=== PATIENT | male | born 1995 | race Caucasian/White ===

== ENCOUNTER 2019-03-05 14:27 | Observation (INO) | payer OTHER ==
[~2019-03-05] VITALS: Ht 188 cm; Wt 100.8 kg
[2019-03-05] MEDS ORDERED: ACET-908 PO (14:54)
[2019-03-05] MEDS ORDERED: KETOROLAC 30 MG/ML VIAL (J1885) IV ONE (15:45)
[2019-03-05] MEDS ORDERED: ONDANSETRON 4MG/2ML VIAL (J2405) IV ONE (15:45)
[2019-03-05] MEDS ORDERED: NS 1,000 ML IV ONE (15:45)
[2019-03-05 16:04] LABS: HEMATOCRIT 24.8 % (42.0-52.0); HEMOGLOBIN 8.8 g/dl (13.5-17.5); MEAN CORPUSCULAR HEMOGLOBIN 32.7 pg (27.0-33.0); MEAN CORPUSCULAR HGB CONC 35.5 g/dl (32.0-36.5); MEAN CORPUSCULAR VOLUME 92.2 fl (80.0-96.0); PLATELET COUNT, AUTOMATED 149 10^3/uL (150-450); RED BLOOD COUNT 2.69 10^6/uL (4.30-6.10); WHITE BLOOD COUNT 7.9 10^3/uL (4.0-10.0)
[2019-03-05 16:30] LABS: ALBUMIN 3.7 GM/DL (3.2-5.2); ALT/SGPT 35 U/L (12-78); BILIRUBIN,TOTAL 2.4 MG/DL (0.2-1.0); BLOOD UREA NITROGEN 18 MG/DL (7-18); CALCIUM LEVEL 8.6 MG/DL (8.5-10.1); CARBON DIOXIDE LEVEL 27 MEQ/L (21-32); CHLORIDE LEVEL 105 MEQ/L (98-107); GLOMERULAR FILTRATION RATE > 60.0 (>60); GLUCOSE, FASTING 104 MG/DL (70-100); POTASSIUM SERUM 4.2 MEQ/L (3.5-5.1); SODIUM LEVEL 139 MEQ/L (136-145); TOTAL PROTEIN 6.3 GM/DL (6.4-8.2)
[2019-03-05] MEDS ORDERED: ISOVUE-370 76% 100ML VIAL (Q9967) As Ordered ONE (16:31)
[2019-03-05 16:33] LABS: ATYPICAL LYMPH 10 % (0-5); BASOPHILS 1 % (0-1); LYMPHOCYTES 20 % (16-44); MONOCYTES 3 % (0-5); NEUTROPHILS 65 % (28-66)
[2019-03-05 16:36] LABS: ANISOCYTOSIS 1+; MONO SCRN POSITIVE (NEGATIVE); PLATELET ESTIMATE NORMAL (NORMAL); POIKILOCYTOSIS 1+
--- NOTE | 2019-03-05 17:15 | REP ---
CT of the neck with contrast Indication: Left cervical lymphadenopathy, recent strap, question abscess. Comparison: None Technique: Axial CT of the soft tissue neck was performed following the uneventful intravenous administration of 75 ml Isovue 378. Coronal and sagittal soft tissue reformatted images were provided. Findings: There is diffuse left cervical lymphadenopathy. Largest, level IIA lymph nodes measure 23 x 816 mm and 22 x 16 mm. Right-sided lymph nodes are not enlarged by CT size criteria. No rim-enhancing fluid collection is identified within the neck to suggest an abscess. The nasal cavity, nasopharynx, oropharynx, hypopharynx are normal in appearance. The nasal septum is midline. The oral cavity is partially obscured by streak artifact from dental amalgam. The thyroid gland, submandibular glands and parotid glands are unremarkable. The upper airway is patent. The lung apices are clear. The orbital contents are intact. The imaged portion of the brain parenchyma is unremarkable. The paranasal sinuses and mastoid air cells are clear. The right mastoid air cells are under pneumatized. The cervical vessels are within normal limits. No suspicious focal osseous lesion. Impression: Cervical lymphadenopathy. No abscess identified. Electronically Signed by Jone Rey MD 03/05/2019 05:07 P
--- NOTE | 2019-03-05 19:12 | REPVR ---
EXAM: CT Abdomen and Pelvis Without Contrast EXAM DATE/TIME: 03/05/2019 6:21 PM CLINICAL HISTORY: 23 years old, male; Abdominal pain; Generalized; Additional info: Abd pain, pos mono, ? splenic injury, low h/h TECHNIQUE: Imaging protocol: Computed tomography of the abdomen and pelvis without contrast. Radiation optimization: All CT scans at this facility use at least one of these dose optimization techniques: automated exposure control; mA and/or kV adjustment per patient size (includes targeted exams where dose is matched to clinical indication); or iterative reconstruction. COMPARISON: No relevant prior studies available. FINDINGS: Lungs: Atelectatic change/parenchymal scarring visualized within the right lower lobe of the lung. Liver: Hepatomegaly. The liver measures 21.6 cm in the craniocaudad dimension. No hepatic mass visualized. Gallbladder and bile ducts: The gallbladder is contracted without discrete gallstones. Pancreas: Normal contour. No ductal dilation. Spleen: Splenomegaly. The spleen measures 21.2 cm in the craniocaudad dimension. No well-defined splenic mass identified. Evaluation for splenic injury is limited by the absence of intravenous contrast. There is lobulation of the spleen versus a splenule medially. Adrenals: No mass. Kidneys and ureters: Contrast is visualized within the bilateral renal collecting systems without hydronephrosis. This contrast is likely residual from a recent prior CT study with contrast. No renal mass visualized. Stomach and bowel: Evaluation of bowel is limited by the absence of oral contrast. There is mild fecal distention of the rectum. Colonic diverticula are identified, without acute inflammatory stranding of the adjacent mesentery. No bowel obstruction. Appendix: The appendix is not visualized. Intraperitoneal space: See Lymph Nodes Finding. No free air. Vasculature: No abdominal aortic aneurysm. Lymph nodes: A few mildly enlarged mesenteric lymph nodes are identified in the right lower quadrant. One of these lymph nodes measures 1.2 x 0.8 cm. Mesenteric adenitis is suggested. Scattered small retroperitoneal lymph nodes are identified, which are nonspecific. Bladder: Unremarkable as visualized. Contrast is visualized within the bladder. Reproductive: Unremarkable as visualized. Bones/joints: Mild dextroscoliosis of the lower thoracic spine. A transitional vertebral body is identified at the lumbosacral junction. Soft tissues: Unremarkable. IMPRESSION: 1. Hepatosplenomegaly. Evaluation for splenic injury is limited on this study. 2. Mild diverticulosis. 3. A few mildly enlarged mesenteric lymph nodes are identified in the right lower quadrant. Mesenteric adenitis is suggested. 4. Additional findings described above. Electronically signed by: Yves Salcido On 03/05/2019 19:12:02 PM
[2019-03-05] MEDS ORDERED: ACET-683 PO (19:24)
[2019-03-05 21:25] LABS: INR 1.61; PARTIAL THROMBOPLASTIN TIME 45.7 SECONDS (25.0-38.4); PROTHROMBIN TIME 18.9 SECONDS (11.8-14.0)
[2019-03-05 21:28] LABS: D-DIMER QUANT 434.75 ng/ml (<500)
[2019-03-05] MEDS ORDERED: ACETAMINOPHEN 500 MG TAB PO PRN (21:30)
[2019-03-05 22:15] LABS: HEMATOCRIT 25.6 % (42.0-52.0)
[2019-03-05 22:29] VITALS: BP 145/65
[2019-03-05] MEDS: HEPARIN SOD (PORCINE) 5000 UNITS/ML VIAL SC SCH (22:54)
[2019-03-05] MEDS: D5W/0.9% SODIUM CHLORIDE 1,000 ML IV SCH (22:55)
[2019-03-06 02:00] VITALS: BP 133/58
--- NOTE | 2019-03-06 03:44 | HPEPDOC ---
General Date of Admission Mar 05, 2019 at 14:28 Date of Service: Mar 05, 2019 Attending Physician: MARLENE AGUILAR DO Chief Complaint The patient is a 23-year-old male admitted with a reason for visit of Anemia,Mononucleosis. Source: Patient Exam Limitations: No limitations Timing/Duration: Day(s), Week(s) (3 weeks) Severity: Moderate Associated Symptoms: Malaise History of Present Illness Patient is 23 years old male without significant past medical history presented hospital with severe fatigue for past 3 weeks. Patient stated that 3 weeks ago he had difficulties in swallow. He went to PCP, he was diagnosed with streptococcal pharyngitis, he has been treated with amoxicillin for 10 days. However, his fatigue did not get better and for next 2 weeks he had low energy level. For past few days patient had fever around 101. In emergency room patient was found to have positive Monospot test, he was found to have hemoglobin of 8.8. Total bilirubin was 2.4, blood count 149, creatinine 1.4. Abdominal CAT scan showed hepatosplenomegaly, a few mildly enlarged mesenteric lymph nodes, mesenteric adenitis is suggested. Also patient was found to have cervical lymphadenopathy. Home Medications Scheduled PRN Acetaminophen (Acetaminophen) 500 Mg Tablet, 1,000 MG PO Q6H PRN for PAIN / FEVER, (Reported) Allergies Coded Allergies: No Known Allergies (Unverified , 03/05/19) Past Medical History Medical History No past medical history Family History Patient stated that his parents are healthy Social History * Smoker: Denies Alcohol: Denies Drugs: denies Recent Travel/Sick Contacts: Reports: Recent travel ([place]) A-FIB/[facility] A-FIB History Current/History of A-Fib/PAF?: No Current PO Anticoag Therapy: No Review of Systems Constitutional: Reports: Chills, Fever, Malaise, Fatigue Eyes: Denies: Pain, Vision change ENT: Denies: Ear Pain, Dysphagia Skin: Denies: Rash, Lesions Pulmonary: Denies: Dyspnea, Cough Cardiovascular: Denies: Chest Pain Gastrointestinal: Reports: Nausea Genitourinary: Denies: Dysuria, Frequency Hematologic: Denies: Bruising, Bleeding Excessively Endocrine: Denies: Polydipsia, Polyphagia Musculoskeletal: Denies: Neck Pain Neurological: Reports: Weakness; Denies: Numbness Psych: Reports: Mood Normal Physical Examination General Exam: Positive: Alert, Cooperative Eye Exam: Positive: PERRLA, Conjunctiva & lids normal, EOMI ENT Exam: Positive: Atraumatic Neck Exam: Positive: Supple, Lymphadenopathy (left submandibular lymph nodes enlarged); Negative: JVD Chest Exam: Positive: Clear to auscultation Heart Exam: Positive: Rate Normal Telemetry: Positive: No significant arrhythmia Abdomen Exam: Positive: Normal bowel sounds Extremity Exam: Negative: Clubbing, Cyanosis Skin Exam: Negative: Nl turgor and temperature Neuro Exam: Positive: Strength at 5/5 X4 ext, Cranial Nerves 3-12 NL Psych Exam: Positive: Mental status NL Vital Signs Vital Signs Date Time Temp Pulse Resp B/P (MAP) Pulse Ox O2 Delivery O2 Flow Rate FiO2 03/06/19 02:00 98.9 77 17 133/58 (83) 99 03/05/19 17:48 Room Air Laboratory Data Labs 24H Laboratory Tests 2 03/05/19 15:42: Nucleated Red Blood Cells % (auto) 0.0, Neutrophils 65, Band Neutrophils 1, Lymphocytes (Manual) 20, Monocytes (Manual) 3, Basophils (Manual) 1, Atypical Lymphocytes 10H, Platelet Estimate NORMAL, Poikilocytosis 1+, Basophilic Stippling 1+, Anisocytosis 1+, Anion Gap 7L, Glomerular Filtration Rate > 60.0, Blood Urea Nitrogen 18, Creatinine 1.40H, Sodium Level 139, Potassium Level 4.2, Chloride Level 105, Carbon Dioxide Level 27, Calcium Level 8.6, Aspartate Amino Transf (AST/SGOT) 42H, Alanine Aminotransferase (ALT/SGPT) 35, Alkaline Phosphatase 60, Total Bilirubin 2.4H, Total Protein 6.3L, Albumin 3.7, Albumin/Globulin Ratio 1.42, Monoscreen POSITIVEA 03/05/19 16:31: Lactic Acid Level 1.0 03/05/19 21:06: Prothrombin Time 18.9H, Prothromb Time International Ratio 1.61, Activated Partial Thromboplast Time 45.7H, Fibrinogen 304, D-Dimer, Quantitative 434.75 03/05/19 22:06: Lactic Acid Level 1.3 CBC/BMP Laboratory Tests 03/05/19 15:42 Red Blood Count 2.69 L, Mean Corpuscular Volume 92.2, Mean Corpuscular Hemoglobin 32.7, Mean Corpuscular Hemoglobin Concent 35.5, Red Cell Distribution Width 18.5 H, Calcium Level 8.6, Aspartate Amino Transf (AST/SGOT) 42 H, Alanine Aminotransferase (ALT/SGPT) 35, Alkaline Phosphatase 60, Total Bilirubin 2.4 H, Total Protein 6.3 L, Albumin 3.7 03/05/19 22:06 Microbiology Microbiology 03/05/19 Blood Culture, Received Pending 03/05/19 Blood Culture, Received Pending 03/05/19 Group A Streptococcus Screen (NIKHIL), Received Pending Assessment/Plan Patient is 23 years old male without significant past medical history presented hospital with severe fatigue for past 3 weeks. Patient stated that 3 weeks ago he had difficulties in swallow. He went to PCP, he was diagnosed with streptococcal pharyngitis, he has been treated with amoxicillin for 10 days. However, his fatigue did not get better and for next 2 weeks he had low energy level. In emergency room patient was found to have positive Monospot test, he was found to have hemoglobin of 8.8. Total bilirubin was 2.4, blood count 149, creatinine 1.4. Abdominal CAT scan showed hepatosplenomegaly, a few mildly enlarged mesenteric lymph nodes, mesenteric adenitis is suggested. Also patient was found to have cervical lymphadenopathy. Problems (1) Mononucleosis Problem Text: Continue supportive treatment IV fluid Appreciate/agree with infectious diseases consult (2) Anemia Problem Text: There is concern for DIC given low blood count and anemia DIC panel ordered H&H every 6 hours (3) Fever Status: Acute Problem Text: Secondary to mononucleosis (4) LYNN (acute kidney injury) Problem Text: Prerenal, secondary to dehydration Continue to monitor Will avoid NSAIDS IV fluid (5) Bilirubinemia Problem Text: Total bilirubin 2.4 Secondary to mononucleosis Will check hepatitis panel, HIV, CMV I will hold Tylenol for now Plan / VTE VTE Prophylaxis Ordered?: Yes MARLENE AGUILAR DO Mar 06, 2019 03:44
[2019-03-06 05:21] VITALS: BP 137/63
[2019-03-06 05:28] LABS: HEMATOCRIT 23.7 % (42.0-52.0); HEMOGLOBIN 8.3 g/dl (13.5-17.5)
[2019-03-06] MEDS: D5W/0.9% SODIUM CHLORIDE 1,000 ML IV SCH (05:39)
[2019-03-06 05:49] LABS: ALBUMIN 3.2 GM/DL (3.2-5.2); ALT/SGPT 39 U/L (12-78); BILIRUBIN,TOTAL 2.1 MG/DL (0.2-1.0); BLOOD UREA NITROGEN 16 MG/DL (7-18); CALCIUM LEVEL 7.9 MG/DL (8.5-10.1); CARBON DIOXIDE LEVEL 25 MEQ/L (21-32); CHLORIDE LEVEL 109 MEQ/L (98-107); CREATININE FOR GFR 1.36 MG/DL (0.70-1.30); GLOMERULAR FILTRATION RATE > 60.0 (>60); GLUCOSE, FASTING 110 MG/DL (70-100); POTASSIUM SERUM 4.1 MEQ/L (3.5-5.1); SODIUM LEVEL 141 MEQ/L (136-145); TOTAL PROTEIN 6.2 GM/DL (6.4-8.2)
[2019-03-06] MEDS ORDERED: ONDANSETRON 4 MG TAB (S0181) PO PRN (06:45)
[2019-03-06] MEDS ORDERED: ACETAMINOPHEN 325 MG TAB PO ONE (06:45)
[2019-03-06 07:06] LABS: HEPATITIS B SURFACE ANTIGEN NEGATIVE (NEGATIVE)
[2019-03-06 07:33] LABS: HEPATITIS C VIRUS ABY INDEX 0.1 INDEX (<0.8)
[2019-03-06 07:34] LABS: HEPATITIS B CORE ANTIBODY IGM NEGATIVE (NEGATIVE)
[2019-03-06 07:36] LABS: HEPATITIS A ANTIBODY IGM NEGATIVE (NEGATIVE)
[2019-03-06 08:00] VITALS: BP 156/86
[2019-03-06] MEDS: HEPARIN SOD (PORCINE) 5000 UNITS/ML VIAL SC SCH (08:40)
[2019-03-06 09:25] LABS: HEMATOCRIT 24.2 % (42.0-52.0); HEMOGLOBIN 8.4 g/dl (13.5-17.5)
[2019-03-06 11:12] LABS: INR 1.65; PROTHROMBIN TIME 19.3 SECONDS (11.8-14.0)
[2019-03-06 11:33] LABS: MEAN CORPUSCULAR HEMOGLOBIN 32.8 pg (27.0-33.0); MEAN CORPUSCULAR HGB CONC 34.4 g/dl (32.0-36.5); MEAN CORPUSCULAR VOLUME 95.4 fl (80.0-96.0); PLATELET COUNT, AUTOMATED 154 10^3/uL (150-450); RED BLOOD COUNT 2.59 10^6/uL (4.30-6.10); WHITE BLOOD COUNT 7.4 10^3/uL (4.0-10.0)
[2019-03-06 12:18] LABS: ANISOCYTOSIS 2+; ATYPICAL LYMPH 12 % (0-5); EOSINOPHILS 1 % (0-3); LYMPHOCYTES 44 % (16-44); MONOCYTES 1 % (0-5); NEUTROPHILS 41 % (28-66); PLATELET ESTIMATE NORMAL (NORMAL)
[2019-03-06 12:20] LABS: POLYCHROMASIA 2+
--- NOTE | 2019-03-06 16:34 | IPNPDOC ---
Text Note Date of Service The patient was seen on 03/06/19. NOTE PROCEDURES PERFORMED DURING STAY: [None]. ADMITTING/DISCHARGE DIAGNOSES: Mononucleosis Anemia streptococcal pharyngitis hepatosplenomegaly COMPLICATIONS/CHIEF COMPLAINT: fatigue HISTORY OF PRESENT ILLNESS/HOSPITAL COURSE: 23 year old male with no significant past medical history presented with severe fatigue for the past 3 weeks. He initially went to his PCP for difficulty swallowing and was diagnosed with Strep pharyngitis which was treated with amoxicillin for 10 days. His fatigue did not improve and he continued to have severe fatigue for the next 2 weeks. Despite this fatigue he continued to go to work (he is in the ) and is currently in an intensive program with significant physical demands. His fatigue became severe enough that he presented to [facility] emergency department. Work up in the ER showed a positive monospot test and he was found to have a hemoglobin of 8.8. CT scan of abd/pelvis and neck demonstrated hepatosplenomegaly and cervical lymphadenopathy respectively. Patient was given tylenol, toradol, and started on IV fluids. His hemoglobin remained stable and his symptoms improved, as did his platelet count, and renal function. He was seen in the morning and was stable enough for discharge home with instructions to follow up with his PCP. DISCHARGE MEDICATIONS: Please see below. ALLERGIES: Please see below. Vitals: (see below) General: No acute distress, laying comfortably in bed. HEENT: Normocephalic, atraumatic. EOMI. No scleral icterus. Moist mucous membranes. No pharyngeal erythema or uvular deviation. Neck: No JVD, lymphadenopathy, or thyromegaly. Cardiac: RRR, Normal S1 and S2, No murmurs, gallops, rubs. Pulm: Clear to auscultation b/l. Symmetric thorax. No wheezing, crackles, rhonchi Abd: Bowel Sounds present. Abdomen is soft, tender to palpation in bilateral upper quadrants. Hepatosplenomegaly on palpation. Ext: No edema or cyanosis Skin: No skin changes Neuro: No focal neuro deficits Psych: Appropriate affect LABORATORY DATA: Please see below. IMAGIN03/05/[address]: Cervical lymphadenopathy. No abscess identified. 03/05/19 Abdomen/Pelvis CT: 1. Hepatosplenomegaly. Evaluation for splenic injury is limited on this study. 2. Mild diverticulosis. 3. A few mildly enlarged mesenteric lymph nodes are identified in the right lower quadrant. Mesenteric adenitis is suggested. PROGNOSIS: good ACTIVITY: No contact sports, combat training, or physical exercise that could result in trauma DIET: As tolerated DISCHARGE PLAN: discharge home DISPOSITION: home DISCHARGE INSTRUCTIONS: 1. Please follow up with PCP in the next 7-10 days 2. Get plenty of rest, hydration, and avoid strenuous exercise and contact sports/combat training ITEMS TO FOLLOWUP ON ON OUTPATIENT: 1. Please repeat lab work provided to you (CBC, PT/INR) before follow up with your PCP 2. Please get repeat LUQ U/S in 4-6 weeks to ensure resolution of splenomegaly. 3. Strongly advised no contact sports or combat training until cleared by PCP. 4. Return to the ER if you experience any problems DISCHARGE CONDITION: [Stable]. TIME SPENT ON DISCHARGE: Greater than 20 minutes. VS,Fishbone, I+O VS, Fishbone, I+O Laboratory Tests 03/05/19 22:06 03/06/19 05:16 Calcium Level 7.9 L, Aspartate Amino Transf (AST/SGOT) 52 H, Alanine Aminotransferase (ALT/SGPT) 39, Alkaline Phosphatase 59, Total Bilirubin 2.1 H, Total Protein 6.2 L, Albumin 3.2 03/06/19 09:13 Red Blood Count 2.59 L, Mean Corpuscular Volume 95.4, Mean Corpuscular Hemoglobin 32.8, Mean Corpuscular Hemoglobin Concent 34.4, Red Cell Distribution Width 18.7 H Vital Signs Date Time Temp Pulse Resp B/P (MAP) Pulse Ox O2 Delivery O2 Flow Rate FiO2 03/06/19 08:00 100.0 95 18 156/86 (109) 96 03/05/19 17:48 Room Air I&O- Last 24 Hours up to 6 AM 03/06/19 05:59 Intake Total 1000 ml Balance 1000 ml GME ATTESTATION GME ATTESTATION My faculty preceptor for this patient encounter was physically present during the encounter and was fully available. All aspects of the patient interview, examination, medical decision making process, and medical care plan development were reviewed and approved by the faculty preceptor. The faculty preceptor is aware and concurs with the plan as stated in the body of this note and will attest to such by his/her cosignature. ATTENDING NOTE I, Brinda Felder, have independently examined this patient and performed my own physical exam, as well as reviewed the documentation and edited where necessary. I have discussed in detail with the resident / student the findings and plan of treatment as documented by the resident / student and edited their note. I agree with their findings and treatment plan and have edited their documentation. I will continue to follow the patient during this hospital stay. CITLALI YANEZ DO Mar 06, 2019 16:34 BRINDA FELDER MD Mar 06, 2019 16:53
== END 2019-03-06 12:12 | disposition home or self-care (01) ==
LOC: M ED 14:27 → M ED INP 14:28 → M MS4PR 22:25
PROVIDERS: ADMIT Internal Medicine; ATTEND Internal Medicine
DX: B27.90 Infectious mononucleosis, unspecified without complication (principal); D64.9 Anemia, unspecified; J02.0 Streptococcal pharyngitis; R16.2 Hepatomegaly with splenomegaly, not elsewhere classified; R50.81 Fever presenting with conditions classified elsewhere; N17.9 Acute kidney failure, unspecified; E80.7 Disorder of bilirubin metabolism, unspecified
CPT/HCPCS: 36415; 70491; 74176; 80053; 83605; 83735; 84145; 85014; 85018; 85025; 85049; 85379; 85384; 85610; 86308; 86705; 86709; 86803; 87040; 87340; 87880; 96361; 96374; 96375; 99284; J1885; J2405; Q9967